=== PATIENT | female | born 1995 | race Caucasian/White ===

== ENCOUNTER 2017-03-17 16:25 | Emergency (ER) | payer MEDICAID, OTHER ==
[~2017-03-17] VITALS: Ht 165.1 cm; Wt 78.0 kg
[~2017-03-17 16:25] MED LIST: ACET325T33 PO; LEVO250T9 PO; MAG-19 PO; ONDA4TAB35 PO; RANI150T9 PO
[2017-03-17 16:36] VITALS: Ht 165.1 cm; Wt 78.0 kg
[2017-03-17] MEDS ORDERED: ONDANSETRON 4 MG INJ IV STA (17:53)
[2017-03-17] MEDS ORDERED: KETOROLAC 30 MG INJ IV STA (17:53)
--- NOTE | 2017-03-17 17:53 | ERD ---
ER Documentation Chief Complaint Chief Complaint Right flank pain, radiating for fron x 2 days, N/V HPI 22-year-old female presents emergency department for left-sided flank pain for 2 days. She vomited a couple of times with nonbilious and nonbloody emesis yesterday. LMP: Stated that it was August 2016. Her last Depo shot was yesterday. A0. Denies headache, dizziness, blurred vision, neck pain, shoulder pain, chest pain , abdominal pain, constipation, diarrhea, trauma, injury, falls, , possibility of being , recent exposure to any illness, recent travel, recent antibiotic use in the last 3 months, fever, chills. No known drug allergies. Past medical history of gallstones. Surgical history of cholecystectomy. Medication: Denies. Social: Not working at this time. Denies smoking, use of alcoholic beverages, use of illegal drugs. ROS All systems reviewed and are negative except as per history of present illness. Medications Home Meds Active Scripts Hydrocodone/Acetaminophen (Ring[place] 5-325 Tablet) 1 Each Tablet, 1 TAB PO Q6H Y for PAIN, #7 TAB Prov:RUELILAROBERTA MADRID F 03/17/17 Ibuprofen* (Motrin*) 800 Mg Tab, 800 MG PO Q8 Y for PAIN AND OR ELEVATED TEMP, # 30 TAB Prov:ROBERTA MARTINEZ F 03/17/17 Ondansetron Hcl* (Zofran*) 4 Mg Tablet, 4 MG PO Q8H Y for NAUSEA AND/OR VOMITING , #30 TAB Prov:RUELILAROBERTA MADRID F 03/17/17 Sulfamethoxazole/Trimethoprim* (Bactrim Ds* Tablet) 1 Each Tablet, 1 TAB PO BID for 7 Days, #14 TAB Prov:RUELILAROBERTA MADRID F 03/17/17 Magaldrate/Simethicone* (Mylanta*) 355 Ml Susp, 30 ML PO QID Y for GASTROINTESTINAL UPSET, #1 BOTTLE Prov:FELIPE GIMENEZ NP 01/30/16 Ranitidine Hcl* (Zantac*) 150 Mg Tablet, 150 MG PO BID Y for EPIGASTRIC PAIN, # 30 TAB Prov:JADEN JO PA-C 01/30/16 Acetaminophen* (Tylenol*) 325 Mg Tablet, 2 TAB PO Q8 Y for PAIN AND OR ELEVATED TEMP, #20 TAB Prov:JADEN JO PA-C 01/30/16 Ondansetron Hcl* (Zofran* ODT) 4 mg -ODT Tab.disper, 4 MG PO Q4H Y for NAUSEA AND OR VOMITING, #30 TAB Prov:GATO CHAPPELL 03/15/15 Levofloxacin* (Levofloxacin*) 250 Mg Tablet, 250 MG PO DAILY for 5 Days, TAB Prov:GATO CHAPPELL 03/15/15 Allergies Allergies: Coded Allergies: No Known Allergy (Unverified , 03/17/17) PMhx/Soc History of Surgery: Yes (Cholecystectomy ) Anesthesia Reaction: No Hx Neurological Disorder: No Hx Respiratory Disorders: No Hx Cardiac Disorders: No Hx Psychiatric Problems: No Hx Miscellaneous Medical Probl: No Hx Alcohol Use: No Hx Substance Use: No Hx Tobacco Use: No Physical Exam Vitals Vital Signs Date Time Temp Pulse Resp B/P Pulse Ox O2 Delivery O2 Flow Rate FiO2 03/17/17 19:55 98.3 95 20 113/79 100 Room Air 03/17/17 16:36 100.2 88 22 128/89 99 Physical Exam Const: [] Head: Atraumatic Eyes: Normal Conjunctiva ENT: Normal External Ears, Nose and Mouth. Neck: Full range of motion..~ No meningismus. Resp: Clear to auscultation bilaterally Cardio: Regular rate and rhythm, no murmurs Abd: Soft, non tender, non distended. Normal bowel sounds. Left sided CVA tenderness. There is no right upper/right lower/epigastric/left upper/left lower abdominal tenderness and likely palpation. Negative on Rovsing's sign. Negative on [place] sign. Negative on psoas sign. Able to jump once without developing right-sided abdominal pain. Skin: No petechiae or rashes Back: No midline. Left-sided CVA tenderness. Ext: No cyanosis, or edema Neur: Awake and alert Psych: Normal Mood and Affect Result Diagram: 03/17/17180403/17/171804 Results 24 hrs Laboratory Tests Test 03/17/17 18:05 White Blood Count 12.310^3/ul Red Blood Count 4.8310^6/ul Hemoglobin 13.8g/dl Hematocrit 41.4% Mean Corpuscular Volume 85.7fl Mean Corpuscular Hemoglobin 28.6pg Mean Corpuscular Hemoglobin Concent 33.3g/dl Red Cell Distribution Width 12.6% Platelet Count 78715^3/UL Mean Platelet Volume 9.6fl Neutrophils % 53.4% Lymphocytes % 40.5% Monocytes % 4.9% Eosinophils % 0.6% Basophils % 0.4% Nucleated Red Blood Cells % 0.0/100WBC Neutrophils # 6.610^3/ul Lymphocytes # 5.010^3/ul Monocytes # 0.610^3/ul Eosinophils # 0.110^3/ul Basophils # 0.110^3/ul Nucleated Red Blood Cells # 0.010^3/ul Prothrombin Time 12.7Sec Prothrombin Time Ratio 1.0 INR International Normalized Ratio 0.95 Activated Partial Thromboplast Time 29.6Sec Urine Color YELLOW Urine Clarity CLOUDY Urine pH 9.0 Urine Specific [place] 1.029 Urine Ketones TRACEmg/dL Urine Nitrite NEGATIVEmg/dL Urine Bilirubin 1+mg/dL Urine Urobilinogen 2+mg/dL Urine Leukocyte Esterase 2+Graciela/ul Urine Microscopic RBC 0/HPF Urine Microscopic WBC 18/HPF Urine Squamous Epithelial Cells MODERATE/HPF Urine Bacteria FEW/HPF Urine Mucus FEW/HPF Urine Hemoglobin NEGATIVEmg/dL Urine Glucose NEGATIVEmg/dL Urine Total Protein 2+mg/dl Sodium Level 148mmol/L Potassium Level 3.4mmol/L Chloride Level 108mmol/L Carbon Dioxide Level 26mmol/L Anion Gap 17 Blood Urea Nitrogen 17mg/dl Creatinine 0.99mg/dl Glucose Level 93mg/dl Calcium Level 9.5mg/dl Total Bilirubin 0.8mg/dl Direct Bilirubin 0.00mg/dl Indirect Bilirubin 0.8mg/dl Aspartate Amino Transf (AST/SGOT) 23IU/L Alanine Aminotransferase (ALT/SGPT) 30IU/L Alkaline Phosphatase 89IU/L Total Protein 8.3g/dl Albumin 4.8g/dl Globulin 3.50g/dl Albumin/Globulin Ratio 1.37 Amylase Level 101U/L Lipase 153U/L Serum HCG, Qualitative NEGATIVE Current Medications Medications (Trade) Dose Ordered Sig/Ike Route PRN Reason Start Time Stop Time Status Last Admin Dose Admin Sodium Chloride (NS) 1,000 ml @ 1,000 mls/hr Q1H ONCE IV 03/17/17 18:00 03/17/17 18:59 DC 03/17/17 18:09 Ondansetron HCl (Zofran Inj) 4 mg ONCE STAT IV 03/17/17 17:53 03/17/17 17:57 DC 03/17/17 18:16 Ketorolac Tromethamine (Toradol) 30 mg ONCE STAT IV 03/17/17 17:53 03/17/17 17:57 DC 03/17/17 18:16 Acetaminophen 1000 mg 1,000 mg ONCE STAT PO 03/17/17 19:03 03/17/17 19:04 DC 03/17/17 19:19 Ceftriaxone Sodium (Rocephin) 50 ml @ 100 mls/hr ONCE ONCE IVPB 03/17/17 19:30 03/17/17 19:59 DC 03/17/17 19:19 Procedures/MDM 22-year-old female presents emergency department for left-sided flank pain for 2 days. She vomited a couple of times with nonbilious and nonbloody emesis yesterday. LMP: Stated that it was August 2016. Her last Depo shot was yesterday. A0. Denies headache, dizziness, blurred vision, neck pain, shoulder pain, chest pain , abdominal pain, constipation, diarrhea, trauma, injury, falls, , possibility of being , recent exposure to any illness, recent travel, recent antibiotic use in the last 3 months, fever, chills. No known drug allergies. Past medical history of gallstones. Surgical history of cholecystectomy. Medication: Denies. Social: Not working at this time. Denies smoking, use of alcoholic beverages, use of illegal drugs. Physical exam: Left sided CVA tenderness. There is no right upper/right lower/ epigastric/left upper/left lower abdominal tenderness and likely palpation. Negative on Rovsing's sign. Negative on Shantel sign. Negative on psoas sign. Able to jump once without developing right-sided abdominal pain. Patient agreed with the diagnostic test, treatment, plan of care. Serum : Negative. Urinalysis: UTI. CT of the abdomen and pelvis without contrast: Unremarkable examination with no acute abnormality or findings to suggest source of patient's symptoms. Blood works: Reviewed. Treatment: IV insertion. Normal saline IV 1000 cc bolus. Toradol 30 mg IV 1. Zofran IV 1. Tylenol 1 g p.o. Ceftriaxone 1 g IV. Reevaluation: Alert and oriented 4. Speaks full and clear sentences. Lung sounds are clear to auscultation. Active bowel sounds. There is no right upper /right lower/epigastric/left upper/left lower abdominal tenderness and likely palpation. Negative on Rovsing's sign. Negative Shantel sign. Able to jump 5 times without developing right lower abdominal pain. Ambulatory with steady gait and without pain and without difficulty. No CVA tenderness at this time. No neurological deficit no neurovascular deficits. Stated she feels much better this time and is ready to go home. Differential diagnosis: Appendicitis versus pancreatitis versus diverticulitis versus nephrolithiasis versus acute abdomen versus gastritis versus urinary tract infection Final diagnosis: Pyelonephritis. Prescription: Bactrim DS. Motrin. Zofran. Ringgold. Follow-up with PCP in the next 24-48 hours. Come back here in the emergency department for any symptoms or any worsening of symptoms. All questions and concerns were answered. Patient verbalized understanding and agreed with the plan of care. Hemodynamically stable on discharge. Departure Diagnosis: Primary Impression: Pyelonephritis Condition: Stable Additional Instructions: Follow-up with PCP in the next 24-48 hours. Come back here in the emergency department for any symptoms or any worsening of symptoms. All questions and concerns were answered. Patient verbalized understanding and agreed with the plan of care. ROBERTA MARTINEZ Mar 17, 2017 17:53
[2017-03-17] MEDS ORDERED: SOD CHLORIDE 0.9% 1,000 ML IV ONE (18:00)
[2017-03-17 18:20] LABS: BASOPHIL # 0.1 10^3/ul (0.0-0.1); BASOPHILS % 0.4 % (0.0-2.0); EOSINOPHILS # 0.1 10^3/ul (0.0-0.5); EOSINOPHILS % 0.6 % (0.0-7.0); HEMATOCRIT 41.4 % (37.0-47.0); HEMOGLOBIN 13.8 g/dl (12.0-16.0); LYMPHOCYTES % 40.5 % (18.0-55.0); MEAN CORPUSCULAR HEMOGLOBIN 28.6 pg (29.0-33.0); MEAN CORPUSCULAR HGB CONC 33.3 g/dl (32.0-37.0); MEAN CORPUSCULAR VOLUME 85.7 fl (72.0-104.0); MEAN PLATELET VOLUME 9.6 fl (7.4-10.4); MONOCYTE # 0.6 10^3/ul (0.3-0.9); MONOCYTES % 4.9 % (0.0-13.0); NEUTROPHIL # 6.6 10^3/ul (1.6-7.5); NEUTROPHILS % 53.4 % (30.0-74.0); PLATELET COUNT 360 10^3/UL (140-415); RED BLOOD COUNT 4.83 10^6/ul (4.20-5.40); RED CELL DISTRIBUTION WIDTH 12.6 % (11.5-14.5); WHITE BLOOD COUNT 12.3 10^3/ul (4.8-10.8)
[2017-03-17 18:26] LABS: ADD UMIC YES; UR ASCORBIC ACID NEGATIVE (NEGATIVE); UR BACTERIA FEW /HPF (NONE SEEN); UR BILIRUBIN (Dip) 1+ mg/dL (NEGATIVE); UR BLOOD (Dip) NEGATIVE (NEGATIVE); UR CLARITY CLOUDY (CLEAR); UR COLOR YELLOW (YELLOW); UR GLUCOSE (Dip) NEGATIVE (NEGATIVE); UR KETONES (Dip) TRACE mg/dL (NEGATIVE); UR LEUKOCYTE ESTERASE (Dip) 2+ Leu/ul (NEGATIVE); UR MUCUS FEW /HPF (NONE SEEN); UR NITRITE (Dip) NEGATIVE (NEGATIVE); UR RBC 0 /HPF (0-5); UR SPECIFIC GRAVITY (Dip) 1.029 (1.003-1.030); UR SQUAMOUS EPITHELIAL CELL MODERATE /HPF (FEW); UR TOTAL PROTEIN (Dip) 2+ mg/dl (NEGATIVE); UR UROBILINOGEN (Dip) 2+ mg/dL (NEGATIVE)
[2017-03-17 18:33] LABS: INR 0.95; PROTIME 12.7 Sec (12.2-14.2)
[2017-03-17 18:34] LABS: PARTIAL THROMBOPLASTIN TIME 29.6 Sec (25.0-35.0)
[2017-03-17 18:36] LABS: ALBUMIN 4.8 g/dl (3.3-4.9); ALBUMIN/GLOBULIN RATIO 1.37; BILIRUBIN,INDIRECT 0.8 mg/dl (0-1.1); BILIRUBIN,TOTAL 0.8 mg/dl (0.2-1.3); CALCIUM 9.5 mg/dl (8.4-10.2); CREATININE 0.99 mg/dl (0.44-1.00); POTASSIUM 3.4 mmol/L (3.5-5.1); TOTAL PROTEIN 8.3 g/dl (6.1-8.1)
[2017-03-17] MEDS ORDERED: ACETAMINOPHEN 500 MG TAB PO STA (19:03)
--- NOTE | 2017-03-17 19:23 | RADRPT ---
PROCEDURE: CT abdomen and pelvis without contrast. CLINICAL INDICATION: Left flank pain. TECHNIQUE: CT of the abdomen and pelvis was performed without contrast. Coronal and sagittal reform atted images were obtained from the axial source images. Images were reviewed on a high-resolution [employer] workstation. The total exam CTDI equals 15.06 mGy and the total exam DLP equals 801.11 mGy-cm. D ICOM images are available. One or more of the following dose reduction techniques were used: - Automated exposure control. - Adjustment of the mA and/or kV according to patient size. - Use of iterative reconstruction technique. COMPARISON: CT dated 01/27/2016 and ultrasound dated 01/30/2016. FINDINGS: Visualized lower thorax: The visualized lung bases are clear. The visualized heart is unremarkable. Hepatobiliary system and spleen: The liver is grossly unremarkable. There is no intra or extrahepat ic biliary ductal dilatation. The gallbladder is surgically absent. The spleen is grossly unremarkab le. The pancreas is grossly unremarkable. Adrenal glands and genitourinary system: The adrenal glands are grossly unremarkable. There is no n ephrolithiasis or hydronephrosis. The urinary bladder is grossly unremarkable. The uterus and adnex a are grossly unremarkable. Gastrointestinal system: There is no bowel wall thickening or evidence of obstruction. The appendix is in the right lower quadrant and is unremarkable. Peritoneum, vascular, and lymphatics: There is no free intraperitoneal air or free fluid. There is no mesenteric or retroperitoneal adenopathy. The aorta is nonaneurysmal. Musculoskeletal system and soft tissues: There is mild to moderate multilevel degenerative enthesop athy. There are no concerning osseous lesions. The soft tissues are unremarkable. IMPRESSION: 1. Unremarkable examination with no acute abnormality or findings to suggest a source of the patien t's symptoms. RPTAT: HLBP .Ovidio Oliva MD, MD Date Time Electronically viewed and signed by .Ovidio Oliva MD, MD on 03/17/2017 19:22 .P/
[2017-03-17] MEDS ORDERED: CEFTRIAXONE 1 GM/50 ML (PMX) 50 ML IVPB ONE (19:30)
[2017-03-17] MEDS ORDERED: IBUP800T25 PO (20:00)
[2017-03-17] MEDS ORDERED: SULF1TAB31 PO (20:00)
[2017-03-17] MEDS ORDERED: ONDA4TAB8 PO (20:00)
[2017-03-17] MEDS ORDERED: HYDR-906 PO (20:01)
[2017-03-17 20:25] VITALS: BP 128/80; PULSE 89; RESP 16; TEMP 99.9
== END 2017-03-17 20:40 | disposition home or self-care (01) ==
LOC: FTE 16:25
DX: N12 Tubulo-interstitial nephritis, not specified as acute or chronic (principal)
CPT/HCPCS: 74176; 80053; 81001; 82150; 83690; 84703; 85025; 85610; 85730; 87086; J0696; J1885; J2405; J7030; Z7610; 96374; 96375